=== PATIENT | male | born 1985 | race Caucasian/White ===

== ENCOUNTER 2016-07-20 04:32 | Emergency (ER) | payer SELFPAY ==
[2016-07-20 05:36] VITALS: RESP 18
--- NOTE | 2016-07-20 05:54 | C.PDOC ---
History Of Present Illness Patient is a 36 year old male who presents to the ER with a complaint of ETOH intoxication and swollen, bloody nose. Patient denies any nausea, vomiting, or any other injury. Chief Complaint (Nursing): Substance Abuse History Per: Patient History/Exam Limitations: intoxication Onset/Duration Of Symptoms: Hrs Current Symptoms Are (Timing): Still Present Modifying Factor(s): Alcohol Past Medical History Reviewed: Historical Data, Nursing Documentation, Vital Signs Vital Signs: Last Vital Signs Temp 97.4 F L 07/20/16 04:43 Pulse 89 07/20/16 05:35 Resp 18 07/20/16 05:35 BP 146/84 07/20/16 05:35 Pulse Ox 96 07/20/16 06:06 Family History: States: Unknown Family Hx - Social History Hx Alcohol Use: Yes Hx Substance Use: No - Immunization History Hx Tetanus Toxoid Vaccination: No Hx Influenza Vaccination: No Hx Pneumococcal Vaccination: No Review Of Systems Except As Marked, All Systems Reviewed And Found Negative. Constitutional: Negative for: Fever, Chills ENT: Positive for: Other (Nose swelling) Cardiovascular: Negative for: Chest Pain, Palpitations Respiratory: Negative for: Cough, Shortness of Breath Gastrointestinal: Negative for: Nausea, Vomiting, Diarrhea Physical Exam - Physical Exam Appears: Non-toxic, Other (ETOH on breath) Skin: Normal Color, Warm, Dry Head: Atraumatic, Normacephalic Nose: Other (Swelling) Oral Mucosa: Moist Cardiovascular: Rhythm Regular Respiratory: Normal Breath Sounds, No Rales, No Rhonchi, No Wheezing Gastrointestinal/Abdominal: Soft, No Tenderness Neurological/Psych: Oriented x3, Normal Speech, Normal Cognition ED Course And Treatment - Laboratory Results Result Diagrams: 07/20/16 06:04 07/20/16 05:19 O2 Sat by Pulse Oximetry: 96 (Room air) Pulse Ox Interpretation: Normal Progress Note: Blood work and CT of head, orbits, and facials w/o contrast ordered. Disposition Counseled Patient/Family Regarding: Diagnosis - Disposition Referrals: [facility] [Outside] Disposition: HOME/ ROUTINE Disposition Time: 06:56 Condition: STABLE Instructions: Abuse of Alcohol (ED) - POA Present On Arrival: Falls Or Trauma - Clinical Impression Clinical Impression: Alcoholic intoxication, Facial injury - Scribe Statement The provider has reviewed the documentation as recorded by the Scribe Theo Molina All medical record entries made by the Rick were at my direction and personally dictated by me. I have reviewed the chart and agree that the record accurately reflects my personal performance of the history, physical exam, medical decision making, and the department course for this patient. I have also personally directed, reviewed, and agree with the discharge instructions and disposition.
[2016-07-20 06:12] LABS: BASO % 0.6 % (0.0-2.0); EOS # 0.1 K/uL (0.0-0.7); EOS % 1.8 % (0.0-4.0); HEMATOCRIT 47.8 % (35.0-51.0); LYMPH # 2.4 K/uL (1.0-4.3); MEAN CELL VOLUME 83.9 fL (80.0-94.0); MEAN CORPUSCULAR HGB CONC 33.4 g/dL (33.0-37.0); MEAN PLATELET VOLUME 8.4 fL (7.2-11.7); MONO # 0.8 K/uL (0.0-0.8); MONO % 9.6 % (0.0-10.0); NRBC % 0.1 % (0.0-2.0); RED CELL DISTRIBUTION WIDTH 14.4 % (11.5-14.5); WHITE BLOOD COUNT 8.2 K/uL (4.8-10.8)
[2016-07-20 06:34] LABS: CHLORIDE 105 mmol/L (98-107)
[2016-07-20 06:35] LABS: POTASSIUM 3.6 mmol/L (3.6-5.2); SODIUM 146 mmol/L (132-148)
[2016-07-20 06:37] LABS: ALB/GLOB RATIO 1.1 (1.0-2.1); ALKALINE PHOSPHATASE 86 U/L (38-126); ALT/SGPT 72 U/L (21-72); AST/SGOT 48 U/L (17-59); BILIRUBIN,TOTAL 0.4 mg/dL (0.2-1.3); BLOOD UREA NITROGEN 12 mg/dL (9-20); CARBON DIOXIDE 21 mmol/L (22-30); GFR AFRICAN-AMERICAN > 60; GLUCOSE,RANDOM 108 mg/dL (75-110); TOTAL PROTEIN 8.9 g/dL (6.3-8.3)
[2016-07-20 06:38] LABS: ALCOHOL SERUM 201 mg/dl (0-10); CALCIUM 9.3 mg/dl (8.6-10.4)
--- NOTE | 2016-07-20 09:57 | CT ---
PROCEDURE: CT HEAD WITHOUT CONTRAST. HISTORY: injury COMPARISON: None available. TECHNIQUE: Axial computed tomography images were obtained through the head/brain without intravenous contrast. Radiation dose: Total exam DLP = 838.74 mGy-cm. FINDINGS: HEMORRHAGE: No intracranial hemorrhage. BRAIN: No mass effect or edema. No atrophy or chronic microvascular ischemic changes. VENTRICLES: Unremarkable. No hydrocephalus. CALVARIUM: Unremarkable. PARANASAL SINUSES: Unremarkable as visualized. No significant inflammatory changes. MASTOID AIR CELLS: Unremarkable as visualized. No inflammatory changes. OTHER FINDINGS: None. IMPRESSION: Normal CT of the Head. No intracranial hemorrhage. This CT exam was performed using one or more of the following dose reduction techniques: Automated exposure control, adjustment of the mA and/or kV according to patient size, and/or use of iterative reconstruction technique.
--- NOTE | 2016-07-20 11:10 | CT ---
CT orbits without IV contrast Indication: Injury Comparison: Noncontrast head CT performed 07/20/16 Technique: Axial computed tomography images were obtained of the orbits without the use of intravenous contrast. Coronal and sagittal reformatted images were created and reviewed. This CT exam was performed using 1 or more of the falling dose reduction techniques: Automated exposure control, adjustment of the MAA and/or kV according to patient size, and/or use of iterative reconstruction technique Radiation dose: Total exam DLP = 813.22 mGy-cm. Findings: Comminuted minimally displaced right nasal bone fracture deformity. Nondisplaced left nasal bone fracture deformity. Associated soft tissue swelling. The remainder of the visualized facial bones appear intact without acute displaced fracture. The orbits appear unremarkable. The temporomandibular joints are located. The mastoid air cells appear clear. Mild mucosal thickening of the right maxillary sinus. Paranasal sinuses appear otherwise unremarkable without air-fluid levels Impression: Comminuted minimally displaced right nasal bone fracture deformity. Nondisplaced left nasal bone fracture deformity. Associated soft tissue swelling.
[2016-07-20 12:06] VITALS: BP 134/61; PULSE 68; TEMP 98.4; O2SAT 100
== END 2016-07-20 12:06 | disposition home or self-care (01) ==
LOC: EDBD 04:32 → C.ER 04:32
DX: F10.129 Alcohol abuse with intoxication, unspecified (principal); Y90.7 Blood alcohol level of 200-239 mg/100 ml; S02.2XXA Fracture of nasal bones, initial encounter for closed fracture; X58.XXXA Exposure to other specified factors, initial encounter
CPT/HCPCS: 70450; 70480; 80053; 82948; 85025; 99284; G0480